=== PATIENT | female | born 1965 ===

== ENCOUNTER 2023-12-12 09:01 | Outpatient (CLI) | payer BC, SELFPAY | END 2023-12-12 09:02 | disposition home or self-care (01) | LOC: WOUND 09:05 | PROVIDERS: Visit Provider Nurse Practitioner Family | DX: S81.811A Laceration without foreign body, right lower leg, initial encounter (principal); W22.8XXA Striking against or struck by other objects, initial encounter | CPT/HCPCS: 11042; G0463 ==

== ENCOUNTER 2023-12-19 10:08 | Outpatient (CLI) | payer BC, SELFPAY | END 2023-12-19 10:09 | disposition home or self-care (01) | LOC: WOUND 10:08 | PROVIDERS: Visit Provider Nurse Practitioner Family | DX: S81.811A Laceration without foreign body, right lower leg, initial encounter (principal); W22.8XXA Striking against or struck by other objects, initial encounter | CPT/HCPCS: G0463 ==

== ENCOUNTER 2023-12-26 09:19 | Outpatient (CLI) | payer BC, SELFPAY | END 2023-12-26 09:20 | disposition home or self-care (01) | LOC: WOUND 09:19 | PROVIDERS: Visit Provider Nurse Practitioner Family | DX: S81.811D Laceration without foreign body, right lower leg, subsequent encounter (principal) | CPT/HCPCS: G0463 ==